=== PATIENT | male | born 1990 | race Caucasian/White ===

== ENCOUNTER 2022-11-11 08:57 | Emergency (ER) | payer OTHER ==
--- OUTSIDE RECORDS SUMMARY | 2022-11-11 09:11 | XMS REPORT | Continuity of Care Document ---
:1990 Author Organization [facility] t Address [address] [place] [address] [place] [id number] Care Team Providers Name Role Phone Shield Attending Clinician Unavailable Shield Admitting Clinician Unavailable Payers Payer Name Policy Type Policy Number Effective Date Expiration Date S pedritodeandre [employer]/ [place] 88 Problems This patient has no known problems. Allergies, Adverse Reactions, Alerts This patient has no known allergies or adverse reactions. Medications This patient has no known medications. Procedures This patient has no known procedures. Encounters Start End Encounter Admission Attending Care Care Encounter Source Date/Time Date/Time Type Type Clinicians Facility Department ID 2020-08-28 2020-08-28 Outpatient [id number] [place] 02:21:00 02:21:00 [id number] Results This patient has no known results.
[2022-11-11] MEDS ORDERED: NA CHLORIDE 0.9% 1,000 ML ONE (09:43)
[2022-11-11 09:46] LABS: Absolute Lymphocytes (CBC) 2.3 K/uL (0.7-4.9); Hematocrit 44.7 % (39.6-49.0); Lymphocytes % 21.5 % (15.3-44.8); MCV 87.1 fL (80-100); MPV 8.6 fL (7.6-11.3); RBC Red Blood Cell Count 5.14 M/uL (4.33-5.43)
[2022-11-11 09:56] LABS: Potassium 3.4 mmol/L (3.5-5.1)
--- NOTE | 2022-11-11 10:30 | RAD REPORT ---
EXAM DESCRIPTION: RAD - Chest Pa And Lat (2 Views) - 11/11/2022 10:19 am CLINICAL HISTORY: Cough, fever, headache COMPARISON: None TECHNIQUE: Frontal and lateral views of the chest were obtained. FINDINGS: The lungs are clear. Heart size is normal and central vasculature is within normal limit s. No pleural effusion or pneumothorax seen. No acute bony finding noted. No aortic abnormality. IMPRESSION: No acute cardiopulmonary process.
[2022-11-11 10:32] LABS: SARS-COV-2 RT PCR NEGATIVE (NEGATIVE)
[2022-11-11] MEDS ORDERED: POTASSIUM CL SA 10 MEQ TAB PO ONE (10:46)
[2022-11-11] MEDS ORDERED: ALBUTEROL 2.5 MG/3 ML NEB SOL ONE (10:55)
[2022-11-11] MEDS ORDERED: IPRATROPIUM BROM 0.5MG/2.5ML ONE (10:55)
--- NOTE | 2022-11-11 11:57 | RAD REPORT ---
EXAM DESCRIPTION: CT - Chest For Pe Angio - 11/11/2022 11:42 am CLINICAL HISTORY: chest pain, sob, elevated dd COMPARISON: No comparisons TECHNIQUE: Dynamically enhanced 2 mm thick images of the chest were obtained during administration o f approximately approximately 80 mL Isovue 370 IV contrast. Coronal and oblique MIP reconstruction im ages were generated and reviewed. Exam utilizes a protocol to evaluate the pulmonary arterial tree. P ulmonary arterial tree opacification was not optimal on the initial examination. The exam was repeate d with an additional contrast dosage. All CT scans are performed using dose optimization technique as appropriate and may include automated exposure control or mA/KV adjustment according to patient size. FINDINGS: No pulmonary emboli are identified. The aorta as imaged shows no acute or suspicious finding. No pericardial thickening or effusion. No infiltrate or mass in the lung parenchyma. No pleural effusion or pleural thickening. No mediastinal or hilar suspicious masses. No chest wall masses or abnormal axillary lymphadenopathy. IMPRESSION: No pulmonary emboli identified. No other significant or suspicious findings.
--- NOTE | 2022-11-11 12:10 | EDPHYS ---
Physician Documentation [facility] Name: Haim Perez II Age: 31 yrs Sex: Male : 1990 Arrival Date: 11/11/2022 Time: 09:00 Bed 14 Private MD: Honorio Fraser ED Physician Cristian Kelely HPI: 11/11 09:25 This 31 yrs old Male presents to ER via Ambulatory with complaints of Fever, Nausea, kb Shortness Of Breath, Pain All Over. 09:28 The patient or guardian reports cough, that is intermittent, described as mild, flu kb symptoms, low-grade fever, myalgias. Onset: The symptoms/episode began/occurred last week. Severity of symptoms: At their worst the symptoms were moderate, in the emergency department the symptoms are unchanged. 09:36 Modifying factors: The symptoms are alleviated by nothing, the symptoms are aggravated kb by nothing. Associated signs and symptoms: Pertinent positives: chest pain, with breathing, fever. The patient has not experienced similar symptoms in the past. The patient has been recently seen at an urgent care. Pt reports fever, bodyaches, headache, shortness of breath that started 1 week ago. Was seen in urgent care at onset of symptoms, tested negative for COVID and flu was sent home on a 5-day course of steroids. States symptoms improved while on steroids but it returned after completion of course. Reports O2 sat was 90 at home prior to arrival.. Historical: - Allergies: 09:13 No Known Allergies; ss - Home Meds: 09:13 None [Active]; ss - PMHx: 09:13 None; ss - PSHx: 09:13 Tonsillectomy; ss - Immunization history:: Client reports receiving the 1st dose of the Covid vaccine. - Social history:: Smoking status: Patient denies any tobacco usage or history of. ROS: 09:25 Abdomen/GI: Negative for abdominal pain, nausea, vomiting, diarrhea, and constipation. kb 09:25 Constitutional: Positive for body aches, chills, fatigue, fever, malaise. 09:25 Respiratory: Positive for cough, pleurisy, shortness of breath. 09:25 Neuro: Positive for headache. 09:25 All other systems are negative. Exam: 09:25 Constitutional: This is a well developed, well nourished patient who is awake, alert, kb and in no acute distress. Head/Face: Normocephalic, atraumatic. ENT: Moist Mucous membranes Cardiovascular: Regular rate and rhythm with a normal S1 and S2. No gallops, murmurs, or rubs. No pulse deficits. Respiratory: Respirations even and unlabored. No increased work of breathing. Talking in full sentences Abdomen/GI: Soft, non-tender. No distention Skin: Warm, dry with normal turgor. Normal color. MS/ Extremity: Pulses equal, no cyanosis. Neurovascular intact. Full, normal range of motion. Neuro: Awake and alert, GCS 15, oriented to person, place, time, and situation. Moves all extremities. Normal gait. 09:47 ECG was reviewed by the Attending Physician. Vital Signs: 09:11 BP 118 / 72; Pulse 103; Resp 16; Temp 99.2(O); Pulse Ox 98% on R/A; Weight 111.13 kg; ss Height 5 ft. 10 in. (177.80 cm); Pain 2/10; 10:30 BP 106 / 67; Pulse 84; Resp 16; Temp 98.8; Pulse Ox 98% ; jh5 11:00 BP 103 / 59; Pulse 89; Resp 16; Pulse Ox 99% ; jh5 09:11 Body Mass Index 35.15 (111.13 kg, 177.80 cm) ss MDM: 09:01 Patient medically screened. kb 09:22 Differential diagnosis: viral Infection, bacterial infection, URI, pneumonia Flu, kb COVID, RSV. Data reviewed: vital signs, nurses notes. 12:21 Differential Diagnosis: Bronchitis Influenza Upper Respiratory Infection Pneumonia kb Other Pleurisy PE. I considered the following discharge prescriptions or medication management in the emergency department Antibiotics: At this time antibiotics are not recommended. Historians other than the Patient: Spouse/Significant Other: . Counseling: I had a detailed discussion with the patient and/or guardian regarding: the historical points, exam findings, and any diagnostic results supporting the discharge/admit diagnosis, lab results, radiology results, the need for outpatient follow up, a family practitioner, to return to the emergency department if symptoms worsen or persist or if there are any questions or concerns that arise at home. ED course: Blood work negative for significant findings. No acute findings on chest x-ray. CT chest rule out PE was normal, negative for PE. Patient educated to follow-up with PCP for persistent symptoms or return for any other concerns. Educated on probable viral etiology of symptoms and that antibiotics are not recommended at this time. Verbal understanding received patient in agreement with plan of care.. 11/11 09:08 Order name: CBC with Diff; Complete Time: 09:48 kb 11/11 09:08 Order name: Basic Metabolic Panel; Complete Time: 10:01 kb 11/11 09:08 Order name: [place] Screen Profile; Complete Time: 10:01 kb 11/11 09:08 Order name: Chest Pa And Lat (2 Views) XRAY; Complete Time: 10:34 kb 11/11 09:08 Order name: COVID-19/FLU A+B/RSV; Complete Time: 10:34 kb 11/11 10:46 Order name: D-Dimer; Complete Time: 11:49 kb 11/11 09:08 Order name: IV Start; Complete Time: 09:37 kb 11/11 09:08 Order name: EKG; Complete Time: 09:09 kb 11/11 09:08 Order name: EKG - Nurse/Tech; Complete Time: 09:47 kb 11/11 11:13 Order name: CT Chest For PE Angio; Complete Time: 12:01 kb EC:47 Rate is 87 beats/min. Rhythm is regular. QRS [place] is Normal. PA interval is normal at kb 150 msec. QRS interval is normal at 98 msec. QT interval is normal at 418 msec. Administered Medications: 09:47 Drug: NS 0.9% 1000 ml Route: IV; Rate: 1 bolus; Site: right antecubital; 5 10:44 Drug: Potassium Chloride 20 mEq Route: PO; 5 10:54 Drug: Albuterol 2.5 mg Route: Inhalation; jh5 10:54 Drug: AtroVENT (ipratropium) Aerosol 0.5 mg Route: Inhalation; 5 Disposition: 12:59 Co-signature as Attending Physician, Cristian Kelley MD I agree with the assessment and kdr plan of care. Disposition Summary: 11/11/22 12:10 Discharge Ordered Location: Home kb Condition: Stable kb Diagnosis - Acute upper respiratory infection, unspecified kb Followup: kb - With: Emergency Department - When: As needed - Reason: Worsening of condition Followup: kb - With: Private Physician - When: 2 - 3 days - Reason: Recheck today's complaints, Continuance of care, Re-evaluation by your physician Discharge Instructions: - Discharge Summary Sheet kb - Upper Respiratory Infection, Adult, [id number] kb - Viral Respiratory Infection, [id number] kb - Pleurisy, [id number] kb Forms: - Medication Reconciliation Form kb - Thank You Letter kb - Antibiotic Education kb - Prescription Opioid Use kb Prescriptions: - Diclofenac Sodium 75 mg Oral tablet,delayed release (DR/EC) - take 1 tablet by ORAL route 2 times per day As needed; 30 tablet; Refills: 0, kb Product Selection Permitted Signatures: Dispatcher [employer] EDMS Leyla Caldera, CONING MACHINE OPERATOR-C CONING MACHINE OPERATOR-Cristian Harper MD MD kdr Smirch, Shelby, RN RN ss Barbara Rush RN RN jh5
--- NOTE | 2022-11-11 12:10 | ER ---
Nurse's Notes [facility] Name: Haim Perez II Age: 31 yrs Sex: Male : 1990 Arrival Date: 11/11/2022 Time: 09:00 Bed 14 Private MD: Honorio Fraser Diagnosis: Acute upper respiratory infection, unspecified Presentation: 11/11 09:11 Chief complaint: Patient states: Fever, headache and SOB that began 1 week ago. Pt ss reports he was seen at urgent care, tested negative for COVID and FLU twice. Coronavirus screen: Client denies travel out of the [place] in the last 14 days. Ebola Screen: Patient denies exposure to infectious person. Patient denies travel to an Ebola-affected area in the 21 days before illness onset. Initial Sepsis Screen: Does the patient meet any 2 criteria? No. Patient's initial sepsis screen is negative. Does the patient have a suspected source of infection? No. Patient's initial sepsis screen is negative. Risk Assessment: Do you want to hurt yourself or someone else? Patient reports no desire to harm self or others. Onset of symptoms was November 04, 2022. 09:11 Method Of Arrival: Ambulatory ss 09:11 Acuity: FRANCISCO 3 ss Triage Assessment: 11:22 General: Appears in no apparent distress. uncomfortable, slender, well groomed, well jh5 developed, Behavior is calm, cooperative, appropriate for age. Pain: Complains of pain in chest. GI: Reports nausea. Historical: - Allergies: 09:13 No Known Allergies; ss - Home Meds: 09:13 None [Active]; ss - PMHx: 09:13 None; ss - PSHx: 09:13 Tonsillectomy; ss - Immunization history:: Client reports receiving the 1st dose of the Covid vaccine. - Social history:: Smoking status: Patient denies any tobacco usage or history of. Screenin:21 Abuse screen: Denies threats or abuse. Denies injuries from another. Nutritional 5 screening: No deficits noted. Tuberculosis screening: No symptoms or risk factors identified. 11:23 [facility] ED Fall Risk Assessment (Adult) History of falling in the last 3 months, jh5 including since admission No falls in past 3 months (0 pts) Confusion or Disorientation No (0 pts) Intoxicated or Sedated No (0 pts) Impaired Gait No (0 pts) Mobility Assist Device Used No (0 pt) Altered Elimination No (0 pt) Score/Fall Risk Level 0 - 2 = Low Risk. Assessment: 11:23 GI: Abdomen is flat. 5 Vital Signs: 09:11 BP 118 / 72; Pulse 103; Resp 16; Temp 99.2(O); Pulse Ox 98% on R/A; Weight 111.13 kg; Height 5 ft. 10 in. (177.80 cm); Pain 2/10; 10:30 BP 106 / 67; Pulse 84; Resp 16; Temp 98.8; Pulse Ox 98% ; jh5 11:00 BP 103 / 59; Pulse 89; Resp 16; Pulse Ox 99% ; 5 09:11 Body Mass Index 35.15 (111.13 kg, 177.80 cm) ED Course: 09:00 Patient arrived in ED. as 09:01 Honorio Fraser MD is Private Physician. as 09:01 [facility] Caldera [facility]-C [facility]. kb 09:01 Cristian Kelley MD is Attending Physician. kb 09:13 Triage completed. ss 09:13 Arm band placed on left wrist. 09:37 COVID-19/FLU A+B/RSV Sent. jh5 09:38 Coke Screen Profile Sent. jh5 09:38 Basic Metabolic Panel Sent. jh5 09:38 CBC with Diff Sent. jh5 09:38 Inserted saline lock: 20 gauge in right antecubital area, using aseptic technique. jh5 10:19 Chest Pa And Lat (2 Views) XRAY In Process Unspecified. EDMS 10:25 Barbara Rush, RN is Primary Nurse. jh5 11:21 Patient has correct armband on for positive identification. Bed in low position. Call [facility] light in reach. Side rails up X 1. 11:21 No provider procedures requiring assistance completed. jh5 11:44 CT Chest For PE Angio In Process Unspecified. EDMS 12:31 IV discontinued, intact, bleeding controlled, No redness/swelling at site. Pressure 5 dressing applied. Administered Medications: 09:47 Drug: NS 0.9% 1000 ml Route: IV; Rate: 1 bolus; Site: right antecubital; jh5 10:44 Drug: Potassium Chloride 20 mEq Route: PO; jh5 10:54 Drug: Albuterol 2.5 mg Route: Inhalation; 5 10:54 Drug: AtroVENT (ipratropium) Aerosol 0.5 mg Route: Inhalation; 5 Medication: 11:22 VIS not applicable for this client. [facility] Outcome: 12:10 Discharge ordered by MD. crawford 12:31 Discharged to home ambulatory. [facility] 12:31 Condition: good 12:31 Discharge instructions given to patient, Instructed on discharge instructions, follow up and referral plans. medication usage, safety practices, Demonstrated understanding of instructions, follow-up care, medications, Prescriptions given X 1. 12:32 Patient left the ED. [facility] Signatures: Dispatcher [employer] EDMS Leyla Caldera, JIM-C JIM-Essence Sanabria Shelby, LILIBETH MCELROY Barbara Rush RN RN [facility] Corrections: (The following items were deleted from the chart) 09:47 09:47 NS 0.9% 1000 ml IV at 1 bolus in left antecubital [place] [id number]
[2022-11-11 12:38] VITALS: TEMP 98.8
[2022-11-11 12:39] VITALS: BP 103/59; O2SAT 99
== END 2022-11-11 12:32 | disposition home or self-care (01) ==
LOC: ER 08:57
DX: J06.9 Acute upper respiratory infection, unspecified (principal); Z20.822 Contact with and (suspected) exposure to COVID-19
CPT/HCPCS: 85025; 80048; 36415; 86308; 85379; 0241U; 71275; 71046; Q9967; J7613; J7644; J7030; 93005